=== PATIENT | female | born 2000 | race Caucasian/White ===

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

== ENCOUNTER 2019-10-11 13:14 | Outpatient (CLI) | payer OTHER, SELFPAY | END 2019-10-11 20:15 | disposition home or self-care (01) | LOC: SLB 13:14 | PROVIDERS: ATTEND Internal Medicine | DX: Z03.818 Encounter for observation for suspected exposure to other biological agents ruled out (principal) | CPT/HCPCS: C9803; U0003 ==

== ENCOUNTER 2019-11-01 11:40 | Outpatient (CLI) | payer OTHER ==
[2019-11-02 08:10] LABS: RUBELLA AB, IgG 2.77 index (Immune >0.99)
[2019-11-03 05:30] LABS: RUBELLA AB, IgM <20.0 AU/mL (0.0-19.9)
[2019-11-03 12:12] LABS: VARICELLA ZOSTER IgG <135 index (Immune >165)
== END 2019-11-01 20:56 | disposition home or self-care (01) ==
LOC: SLB 11:40
PROVIDERS: ATTEND Internal Medicine
DX: Z01.84 Encounter for antibody response examination (principal)
CPT/HCPCS: 36415; 86706; 86735; 86762; 86765; 86787

== ENCOUNTER 2019-11-21 14:40 | Outpatient (CLI) | payer OTHER ==
[2019-11-21 15:17] LABS: BASOPHILS % (AUTO) 0.4 % (0.0-2.0); EOSINOPHILS % (AUTO) 0.7 % (0.0-4.0); HEMOGLOBIN 12.5 g/dL (12.0-16.0); LYMPHOCYTES # (AUTO) 1.4 K/uL (1.0-5.5); LYMPHOCYTES % (AUTO) 24.6 % (20.5-51.5); MEAN CORPUSCULAR HEMOGLOBIN 31 pg (27-31); MEAN CORPUSCULAR HGB CONC 35 % (32-36); MEAN CORPUSCULAR VOLUME 90 fL (79.0-98.0); MONOCYTES # (AUTO) 0.5 K/uL (0.0-1.0); MONOCYTES % (AUTO) 9.2 % (1.7-9.3); NEUTROPHILS # (AUTO) 3.6 K/uL (1.8-7.7); NEUTROPHILS % (AUTO) 65.1 % (40.0-70.0); PLATELET COUNT (AUTO) 168 K/uL (130-430); RED CELL DISTRIBUTION WIDTH 12.8 % (9.0-15.0); WHITE BLOOD COUNT (AUTO) 5.5 K/uL (4.5-11.0)
[2019-11-21 15:45] LABS: ALBUMIN 3.2 g/dL (3.4-4.8); CALCIUM 8.7 mg/dL (8.4-11.0); CREATININE 0.84 mg/dL (0.55-1.30); POTASSIUM 3.4 mmol/L (3.5-5.1); THYROID STIMULATING HORMONE 1.31 uIu/mL (0.34-4.82); TOTAL BILIRUBIN 0.3 mg/dL (0.0-1.0)
[2019-11-22 06:26] LABS: HEMOGLOBIN A1C 5.3 % (4.8-5.6)
== END 2019-11-21 20:32 | disposition home or self-care (01) ==
LOC: SLB 14:40
PROVIDERS: ATTEND Internal Medicine
DX: Z00.00 Encounter for general adult medical examination without abnormal findings (principal)
CPT/HCPCS: 36415; 80053; 80061; 82306; 83036; 84443-TC; 85025; 86480